=== PATIENT | female | born 1970 | race Caucasian/White ===

== ENCOUNTER 2020-10-07 21:22 | Emergency (ER) | payer MEDICAID ==
[~2020-10-07] VITALS: Ht 175.3 cm; Wt 63.0 kg
--- NOTE | 2020-10-07 22:00 | NUR ---
Pt placed in room 10 with officer for [facility] at bedside. Pt in handcuffs and agreeing to having blood sugar treated by staff.
[2020-10-07] MEDS ORDERED: normal saline 1000ML IV soln IVB ONE (22:40)
[2020-10-07 23:25] LABS: BASOPHILS # (AUTO) 0.1 X10'3 (0-0.2); BASOPHILS % (AUTO) 1.9 % (0-1); EOSINOPHILS % (AUTO) 0.8 % (0-6); HEMATOCRIT 41.2 % (35.0-45.0); HEMOGLOBIN 13.6 g/dl (12.0-16.0); LYMPHOCYTES # (AUTO) 2.3 X10'3 (1.1-4.8); LYMPHOCYTES % (AUTO) 43.9 % (21-51); MEAN CORPUSCULAR HEMOGLOBIN 31.9 PG (27.0-31.0); MEAN CORPUSCULAR HGB CONC 32.9 g/dL (33.0-36.5); MEAN CORPUSCULAR VOLUME 96.9 FL (78-98); MEAN PLATELET VOLUME 9.8 FL (7.4-10.4); MONOCYTES # (AUTO) 0.6 X10'3 (0-0.9); MONOCYTES % (AUTO) 10.3 % (2-12); NEUTROPHILS # (AUTO) 2.3 X10'3 (1.8-7.7); NEUTROPHILS % (AUTO) 43.1 % (42-75); PLATELET COUNT 225 X10'3 (140-440); RED BLOOD COUNT 4.26 X10'6 (4.20-5.60); RED CELL DISTRIBUTION WIDTH 13.7 % (11.5-14.5); WHITE BLOOD COUNT 5.4 X10'3 (4.5-11.0)
[2020-10-07 23:40] LABS: ALANINE AMINOTRANSFERASE 31 U/L (12-78); ALBUMIN 3.2 G/DL (3.4-5.0); ALBUMIN/GLOBULIN RATIO 0.8 (1.1-1.5); ALKALINE PHOSPHATASE 167 IU/L (46-116); ANION GAP 13 (8-16); ASPARTATE AMINO TRANSFERASE 41 U/L (10-37); BILIRUBIN,TOTAL 0.4 MG/DL (0.1-1.0); BLOOD UREA NITROGEN 6 MG/DL (7-18); CALCIUM 8.6 MG/DL (8.5-10.1); CHLORIDE 98 MMOL/L (99-107); POTASSIUM 4.9 MMOL/L (3.5-5.1); SODIUM 132 MMOL/L (135-145); TOTAL CARBON DIOXIDE 20.7 MMOL/L (24-32); eGFR 47 ML/MIN
[2020-10-07 23:44] LABS: GLUCOSE 553 MG/DL (70-104)
[2020-10-07] MEDS ORDERED: insulin regular, human 10 units/0.1 ml syringe IV ONE (23:45)
[2020-10-08 00:31] LABS: URINE HCG NEGATIVE (NEG)
[2020-10-08 00:39] LABS: CLARITY,URINE CLEAR (Clear); COLOR,URINE YELLOW (Yellow); GLUCOSE, URINE >=1000 mg/dl (Neg); KETONES,URINE TRACE mg/dl (Neg); LEUKOCYTE ESTERASE ,URINE NEGATIVE (Neg); NITRITES, URINE NEGATIVE (Neg); OCCULT BLOOD,URINE NEGATIVE (Neg); PH,URINE 6.5 (4.8-8.0); PROTEIN,URINE NEGATIVE (Neg); UROBILINOGEN,URINE 0.2 E.U/dL (0.2-1.0)
[2020-10-08 00:40] LABS: UA COLLECTION TYPE CLN CATCH MIDSTREAM
[2020-10-08 00:42] LABS: BACTERIA,URINE FEW /HPF (Neg); RBC,URINE 0-2 /HPF (0-2); SQUAMOUS EPITHELIAL CELL,UR FEW /LPF (FEW); WBC,URINE 0-4 /HPF (0-4)
[2020-10-08] MEDS ORDERED: insulin regular, human 10 units/0.1 ml syringe IV ONE (00:55)
--- NOTE | 2020-10-08 01:06 | NUR ---
Pt cooperative with treatement, understands rational for treatment and [employer] officer at bedside throughout treatment.
--- NOTE | 2020-10-08 01:10 | NUR ---
Pt BS checked twice and insulin double checked with Dr. Walters who aggreed to treatements of insulin and doses. Pt aware of treatment and consents to all.
[2020-10-08 01:20] VITALS: BP 99/55
--- NOTE | 2020-10-08 01:52 | NUR ---
Dr. Walters working on dictation for pt so we can print a packet for the [facility]
== END 2020-10-08 01:29 ==
LOC: ER 21:22
DX: E11.65 Type 2 diabetes mellitus with hyperglycemia (principal); E78.00 Pure hypercholesterolemia, unspecified
CPT/HCPCS: 36415; 80053; 81001; 81025; 82948; 85025; 96361; 96374; 96376; 99285; J1815; J7030